=== PATIENT | male | born 1995 | race Caucasian/White ===

== ENCOUNTER 2017-01-04 17:44 | Emergency (ER) | payer OTHER ==
[~2017-01-04] VITALS: Ht 188 cm; Wt 89.0 kg
[~2017-01-04 17:44] MED LIST: ST JTAB PO; Z.0.NO CURRENT MEDS
[2017-01-04 18:04] VITALS: BP 125/66; PULSE 86; RESP 16; TEMP 99; O2SAT 99
--- NOTE | 2017-01-04 18:33 | PD ---
HPI Chief Complaint: Injury Time Seen by Provider: 18:21 Travel History International Travel<30 days: No Contact w/Intl Traveler<30days: No Traveled to known affect area: No History of Present Illness HPI 21-year-old male presents to the emergency room for evaluation of right ankle pain and swelling after injuring it earlier today. Patient was playing basketball and upon coming down from a rebound inverting his right ankle. States he tried overcorrected and felt a pop. Pain is localized to the lateral aspect, worse with range of motion. States he has not been able to walk on it because it is too painful. Denies knee or foot pain. Denies paresthesias. He has not taken anything for pain. No chronic medical conditions or daily medications. PFSH Past Medical History ADHD: Yes (adhd) Arthritis: No Asthma: No Autoimmune Disease: No Anxiety: No Depression: No Heart Rhythm Problems: No Cancer: Yes (SKIN ) Cardiovascular Problems: Yes (mitral valve repair) High Cholesterol: No Chemotherapy: No Chest Pain: No Congestive Heart Failure: No COPD: No Cerebrovascular Accident: No Developmental Delay: No Diabetes: No Diminished Hearing: No Endocrine: No Glaucoma: No Genitourinary: No Headaches: Yes Hepatitis: No Hiatal Hernia: No Hypertension: No Immune Disorder: No Kidney Stones: No Musculoskeletal: No Neurologic: No Psychiatric: Yes (mood disorder nos) Reproductive: No Respiratory: No Immunizations Current: Yes Migraines: Yes Radiation Therapy: No Renal Failure: No Seizures: No Sickle Cell Disease: No Sleep Apnea: No Thyroid Disease: No Ulcer: No Tetanus Vaccination: Unknown Influenza Vaccination: No Past Surgical History Abdominal Surgery: No AICD: No Appendectomy: No Arteriovenous Shunt: No Cardiac Surgery: Yes (OPEN 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 great toe, melanoma ) Social History Alcohol Use: Yes (Occ.) Tobacco Use: No Substance Use: No Allergies-Medications (Allergen,Severity, Reaction): Coded Allergies: No Known Allergies (Verified , 01/04/17) Reported Meds & Prescriptions Reported Meds & Active Scripts Active No Active Prescriptions or Reported Medications Review of Systems Except as stated in HPI: all other systems reviewed are Neg Physical Exam Narrative GENERAL: Well-nourished, well-developed male in no acute distress. Afebrile. SKIN: Focused skin assessment warm/dry. Moderate ecchymosis over the lateral ankle. HEAD: Normocephalic. EYES: No scleral icterus. No injection or drainage. NECK: Supple, trachea midline. No JVD or lymphadenopathy. CARDIOVASCULAR: Regular rate and rhythm without murmurs, gallops, or rubs. RESPIRATORY: Breath sounds equal bilaterally. No accessory muscle use. MUSCULOSKELETAL: No cyanosis. Moderate to severe edema of the right lateral ankle. Extreme tenderness to palpation of the distal fibula and lateral malleolus. No tenderness to palpation of the medial malleolus, foot, or knee. 2+ dorsalis pedis pulse. Full range motion of the foot. Limited range motion of the ankle secondary to pain. Data Data Last Documented VS Vital Signs Date Time Temp Pulse Resp B/P (MAP) Pulse Ox O2 Delivery O2 Flow Rate FiO2 01/04/17 18:04 99.0 86 16 125/66 (85) 99 Room Air Orders Orders Ankle, Complete ([id number]) (01/04/17 ) Splint Or Brace Apply/Monitor (01/04/17 19:15) Crutches (01/04/17 19:15) MDM Medical Decision Making Medical Screen Exam Complete: Yes Emergency Medical Condition: Yes Medical Record Reviewed: Yes Differential Diagnosis Sprain, strain, fracture, dislocation Narrative Course 21-year-old male presents to the emergency room duration of right ankle pain and swelling after injuring it earlier today. Patient inverted his ankle. Physical exam reveals severe edema, moderate ecchymosis, and extreme tenderness to palpation of the right lateral malleolus and distal fibula. Right lower extremities neurovascularly intact with 2+ dorsalis pedis pulse. Limited range of motion of the ankle secondary to pain. X-ray shows no acute bony abnormality. This is ankle sprain. Patient placed in ankle stirrup and given crutches. Discharged with orthopedic instructions and told to follow-up with a PCP as needed or return for worsening symptoms. He understands and agrees to plan. Diagnosis Primary Impression: Right ankle sprain Qualified Codes: S93.401A - Sprain of unspecified ligament of right ankle, initial encounter Referrals: Primary Care Physician Additional Instructions: Rest and drink plenty of fluids. Use splint and crutches consistently for the next week, then as needed for pain. Take ibuprofen with food as directed, as needed for pain. Apply ice to the affected area for 20 minutes at a time, as needed for pain and swelling. Follow-up with a primary care physician. Return to the emergency room for worsening symptoms. Med/Other Pt SpecificInfo: Prescription(s) given Scripts No Active Prescriptions or Reported Meds Disposition: 01 DISCHARGE HOME Condition: Stable Tosin Thompson Jan 04, 2017 18:33
--- NOTE | 2017-01-04 19:08 | RADRPT ---
EXAM DATE/TIME: 01/04/2017 18:30 [facility] COMPARISON: No previous studies available for comparison. INDICATIONS : Right ankle pain. Patient states he rolled it playing basketball. MEDICAL HISTORY : None. SURGICAL HISTORY : None. ENCOUNTER: Initial ACUITY: 1 day PAIN SCORE: 5/10 LOCATION: Right ankle. FINDINGS: Three view exam was performed of the right ankle. The bony structures are in normal alignment. No e vidence of fracture, dislocation. There is lateral soft tissue swelling. The ankle mortise is intact . No radiopaque foreign bodies are seen. Bony mineralization is normal. CONCLUSION: Lateral soft tissue swelling without bony injury seen. Salty Garcia MD on January 04, 2017 at 19:06 Board Certified Radiologist. This report was verified electronically.
== END 2017-01-04 20:04 | disposition home or self-care (01) ==
LOC: PHEFT 17:44
DX: S93.401A Sprain of unspecified ligament of right ankle, initial encounter (principal); Y93.67 Activity, basketball
CPT/HCPCS: 73610; 99283; E0113; L1906